=== PATIENT | male | born 1985 | race American Indian/Alaskan Native ===

== ENCOUNTER 2016-10-30 16:48 | Emergency (ER) | payer OTHER ==
[2016-10-30 17:20] VITALS: BP 116/72
[2016-10-30] MEDS ORDERED: MOTRIN PO ONE (19:50)
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
== END 2016-10-30 20:54 | disposition home or self-care (01) ==
LOC: ED 16:48
DX: S39.012A Strain of muscle, fascia and tendon of lower back, initial encounter (principal); R51 Headache; J45.909 Unspecified asthma, uncomplicated; Z87.891 Personal history of nicotine dependence; Z91.010 Allergy to peanuts; Z91.013 Allergy to seafood; V89.2XXA Person injured in unspecified motor-vehicle accident, traffic, initial encounter; Y93.9 Activity, unspecified; Y99.9 Unspecified external cause status; Y92.410 Unspecified street and highway as the place of occurrence of the external cause
CPT/HCPCS: 70450; 99283